=== PATIENT | female | born 1965 | race Caucasian/White ===

== ENCOUNTER 2017-03-02 19:06 | Inpatient (IN) | payer OTHER ==
[~2017-03-02] VITALS: Ht 160 cm; Wt 107.0 kg
[~2017-03-02 19:06] MED LIST: AMITIZA8 MICROGRA PO; ANALGESIC325 MG PO; ANUSOL1 SUPP PR; Aspirin E.C. PO; BACTRIM,SEPT1 TABLET PO; BENICAR20 MG PO; BUPROPION XL150 MG PO; Bactrim,Septra DS 80 PO; CYMBALTA20 MG PO; Coumadin Daily Dose PO; DEPAKOTE ER (E500 MG PO; DEPAKOTE ER250 MG PO; DEPAKOTE500 MG PO; DILAUDID 2 MG; DONNATAL1 TABLET PO; DOXYCYCLINE HYC50 MG PO; ELAVIL50 MG PO; Ecotrin PO; FLEXERIL10 MG PO; FLOVENT 11120 INHALA IH; GABAPENTIN600 MG PO; GLUCOPHAGE500 MG PO; GRALISE300 MG PO; KLONOPIN0.5 M1 PO; KLONOPIN1 MG PO; KlonoPIN PO; LASIX20 MG PO; LESCOL XL80 MG PO; LEVAQUIN 750 MG; LEVOTHROID,S0.025 MG PO; LEVOTHYROXINE50 MCG PO; LIPITOR20 MG PO; LISINOPRIL20 MG PO; LYRICA100 MG PO; Lasix PO; Levaquin PO; Levothroid,Synthroid PO; Lopressor PO; METFORMIN HCL1000 MG PO; METOPROLOL TART25 MG PO; MOBIC15 MG PO; NEURONTIN100 MG PO; NEURONTIN300 MG PO; NEURONTIN600 MG PO; Neurontin PO; OMEPRAZOLE20 MG PO; OXYCODONE HCL10 MG PO; OXYCODONE HCL5 MG PO; PEPCID20 MG PO; PEPCID40 MG PO; PERCOCET 5/31 TABLET PO; PLAVIX75 MG PO; PRAVACHOL40 MG PO; PROZAC40 MG PO; Santyl TP; THERAGRAN1 TABLET PO; ULTRAM50 MG PO; VICODIN,LORT1 TABLET PO; ZOFRAN ODT4 MG PO; ZOFRAN8 MG PO; bactrim ds
[2017-03-02 20:04] LABS: HEMATOCRIT 42.9 % (36.0-46.0); MCH 29.9 PG (29.0-34.0); MCHC 33.6 G/DL (30.0-36.0); PLATELET COUNT 219 K/uL (156-360); RBC DIS.WIDTH-CV 13.3 % (11.8-14.6); RBC DIS.WIDTH-SD 43.7 % (39-53); RED BLOOD COUNT 4.82 M/uL (3.80-5.20); WHITE BLOOD COUNT 10.4 K/uL (4.1-10.2)
[2017-03-02 20:16] LABS: CHLORIDE 103 mEq/L (99-109); POTASSIUM 4.4 mEq/L (3.7-5.4); SODIUM 136 mEq/L (136-147)
[2017-03-02 20:17] LABS: GLUCOSE 257 mg/dL (70-99)
[2017-03-02 20:19] LABS: ANION GAP 10 MEQ/L (2-14)
[2017-03-02 20:21] LABS: GFR ESTIMATE (CALCULATED) > 59 mL/min/
[2017-03-02 20:22] LABS: UREA NITROGEN (BUN) 17 mg/dL (9-23)
[2017-03-02 20:27] LABS: TROP-I INTERPRETATION POSITIVE
[2017-03-02 20:30] LABS: TROPONIN-I 1.18 ng/mL (0.0-0.30)
[2017-03-02 20:47] LABS: PROTHROMBIN TIME 10.7 SEC (10.2-12.9)
[2017-03-02 20:50] LABS: PTT 28.5 SEC (25-37)
[2017-03-02] MEDS ORDERED: PERCOCET 10/1 TABLET PO (21:34)
[2017-03-02] MEDS ORDERED: VOLTAREN 1% GE100 GM TP (21:35)
[2017-03-02] MEDS ORDERED: AMLODIPINE BESY10 MG PO (21:35)
[2017-03-02] MEDS ORDERED: PRAVACHOL40 MG PO (21:35)
[2017-03-02] MEDS ORDERED: LYRICA75 MG PO (21:35)
[2017-03-02 23:48] LABS: ADD MEDTOX COMMENT Y; AMPHETAMINE NEGATIVE (500 ng/mL); BARBITURATES NEGATIVE (200 ng/mL); BENZODIAZEPINES PRESUMPTIVE POSITIVE (150 ng/mL); COCAINE NEGATIVE (150 ng/mL); INTERNAL CONTROLS VALID? YES; METHADONE NEGATIVE (200 ng/mL); METHAMPHETAMINE NEGATIVE (500 ng/mL); OPIATES (MORPHINE) NEGATIVE (100 ng/mL); OXYCODONE PRESUMPTIVE POSITIVE (100 ng/mL); PHENCYCLIDINE NEGATIVE (25 ng/mL); PROPOXYPHENE NEGATIVE (300 ng/mL); THC CANNABINOIDS NEGATIVE (50 ng/mL); TRICYCLIC ANTIDEPRESSANTS PRESUMPTIVE POSITIVE (300 ng/mL)
[2017-03-03] VITALS (7 sets, daily range): BP systolic 100–130; BP diastolic 56–73
[2017-03-03 01:16] LABS: TROP-I INTERPRETATION POSITIVE
[2017-03-03 01:19] LABS: TROPONIN-I 3.36 ng/mL (0.0-0.30)
[2017-03-03] MEDS ORDERED: KLONOPIN0.5 M1 PO (01:45)
[2017-03-03] MEDS ORDERED: OMEPRAZOLE20 MG PO (01:45)
[2017-03-03 02:51] LABS: BENZODIAZEPINES QUANT VALUE 0 NG/ML; BENZODIAZEPINES, URINE SCREEN Negative (200 ng/mL)
[2017-03-03 06:04] LABS: BASOPHIL COUNT 0.1 K/uL (0-0.1); EOSINOPHIL COUNT 0.3 K/uL (0-0.3); HEMATOCRIT 41.8 % (36.0-46.0); IMMATURE GRANULOCYTE (%) 0.3 % (0.0-0.7); INSTRUMENT ABS NEUTROPHIL CT 3.5 K/uL; LYMPHOCYTE COUNT 4.2 K/uL (1.0-2.8); MCH 28.8 PG (29.0-34.0); MCHC 31.8 G/DL (30.0-36.0); MCV 90.5 FL (83-99); MEAN PLAT.VOLUME 11.6 uM^3 (9.5-12.4); MONOCYTE (%) 7.2 % (3-12); MONOCYTE COUNT 0.6 K/uL (0-0.8); NEUTROPHIL (%) 40.6 % (45-76); NEUTROPHIL COUNT 3.5 K/uL (1.8-6.4); PLATELET COUNT 205 K/uL (156-360); RBC DIS.WIDTH-CV 13.6 % (11.8-14.6); RBC DIS.WIDTH-SD 45.1 % (39-53); RED BLOOD COUNT 4.62 M/uL (3.80-5.20); WHITE BLOOD COUNT 8.7 K/uL (4.1-10.2)
[2017-03-03 06:27] LABS: ANION GAP 8 MEQ/L (2-14); CHLORIDE 107 MEQ/L (99-109); GFR ESTIMATE (CALCULATED) > 59 mL/min/; GLUCOSE 183 mg/dL (70-99); POTASSIUM 4.3 MEQ/L (3.7-5.4); SAMPLE HEMOLYSIS CHECK 0; SAMPLE ICTERIC CHECK 0; SAMPLE LIPEMIA CHECK 0; SODIUM 139 MEQ/L (136-147); UREA NITROGEN (BUN) 14 mg/dL (9-23)
[2017-03-03 06:34] LABS: TROP-I INTERPRETATION POSITIVE; TROPONIN-I 4.14 ng/mL (0.0-0.30)
[2017-03-03 07:42] LABS: POINT-OF-CARE METER ID UU13113698
[2017-03-03 21:26] LABS: POINT-OF-CARE METER ID UU13113698
[2017-03-04 04:20] VITALS: BP 111/60
[2017-03-04 06:15] LABS: PROTHROMBIN TIME 10.9 SEC (10.2-12.9)
[2017-03-04 06:17] LABS: PTT 59.5 SEC (25-37)
[2017-03-04 07:59] LABS: POINT-OF-CARE METER ID UU14174216
[2017-03-04 08:16] VITALS: BP 116/65
[2017-03-04 11:38] VITALS: BP 100/59
[2017-03-04 16:15] VITALS: BP 106/57
[2017-03-04 19:22] VITALS: BP 106/66
[2017-03-04 21:25] LABS: POINT-OF-CARE METER ID UU14174216
[2017-03-04 23:26] VITALS: BP 125/63
[2017-03-05 04:50] VITALS: BP 138/68
[2017-03-05 08:17] VITALS: BP 142/79
[2017-03-05] MEDS ORDERED: LISINOPRIL2.5 MG PO (08:18)
[2017-03-05] MEDS ORDERED: NICOTINE PATCH1 EAC2 TD (08:18)
[2017-03-05] MEDS ORDERED: ADVAIR HFA120 INHALA IH (08:18)
[2017-03-05] MEDS ORDERED: ASPIR-LOW81 MG PO (08:18)
[2017-03-05] MEDS ORDERED: CEPHALEXIN500 MG PO (08:18)
[2017-03-05 11:50] VITALS: BP 138/85
[2017-03-05 16:16] LABS: POINT-OF-CARE METER ID UU13113781
[2017-03-05 17:37] VITALS: BP 129/74
[2017-03-05 19:14] VITALS: BP 122/63
[2017-03-05 21:04] LABS: POINT-OF-CARE METER ID UU13113781
[2017-03-05 23:03] VITALS: BP 131/76
[2017-03-06 03:25] LABS: EOSINOPHIL (%) 2.3 % (0-5); EOSINOPHIL COUNT 0.2 K/uL (0-0.3); HEMATOCRIT 38.4 % (36.0-46.0); IMMATURE GRANULOCYTE (%) 0.4 % (0.0-0.7); INSTRUMENT ABS NEUTROPHIL CT 4.8 K/uL; LYMPHOCYTE COUNT 2.6 K/uL (1.0-2.8); MCH 29.3 PG (29.0-34.0); MCHC 32.6 G/DL (30.0-36.0); MCV 90.1 FL (83-99); MEAN PLAT.VOLUME 11.6 uM^3 (9.5-12.4); MONOCYTE (%) 6.4 % (3-12); MONOCYTE COUNT 0.5 K/uL (0-0.8); NEUTROPHIL (%) 58.8 % (45-76); NEUTROPHIL COUNT 4.8 K/uL (1.8-6.4); PLATELET COUNT 186 K/uL (156-360); RBC DIS.WIDTH-CV 13.9 % (11.8-14.6); RBC DIS.WIDTH-SD 45.3 % (39-53); RED BLOOD COUNT 4.26 M/uL (3.80-5.20); WHITE BLOOD COUNT 8.2 K/uL (4.1-10.2)
[2017-03-06 03:41] LABS: PTT 74.1 SEC (25-37)
[2017-03-06 04:00] VITALS: BP 127/75
[2017-03-06 08:09] LABS: POINT-OF-CARE METER ID UU13113781
[2017-03-06 08:30] VITALS: BP 109/65
[2017-03-06 09:35] LABS: PROTHROMBIN TIME 11.1 SEC (10.2-12.9)
[2017-03-06 09:41] LABS: PTT 41.3 SEC (25-37)
== END 2017-03-06 11:55 | disposition short-term general hospital (02) | DRG 281 ==
LOC: EME 19:06 → 4EAST 23:12 → EDOF 23:12 → ENRESERV 23:14 → 4EAST 03-03 00:56
PROVIDERS: Emergency Medicine; Hospitalist; Internal Medicine; Internal Medicine Cardiovascular Disease
DX: I21.4 Non-ST elevation (NSTEMI) myocardial infarction (principal); L03.115 Cellulitis of right lower limb; I25.10 Atherosclerotic heart disease of native coronary artery without angina pectoris; I70.0 Atherosclerosis of aorta; I70.201 Unspecified atherosclerosis of native arteries of extremities, right leg; E03.9 Hypothyroidism, unspecified; E78.5 Hyperlipidemia, unspecified; J44.9 Chronic obstructive pulmonary disease, unspecified; E11.42 Type 2 diabetes mellitus with diabetic polyneuropathy; E78.00 Pure hypercholesterolemia, unspecified; F31.9 Bipolar disorder, unspecified; F17.210 Nicotine dependence, cigarettes, uncomplicated; G43.909 Migraine, unspecified, not intractable, without status migrainosus; G47.33 Obstructive sleep apnea (adult) (pediatric); G89.4 Chronic pain syndrome; I10 Essential (primary) hypertension; K59.00 Constipation, unspecified; M79.7 Fibromyalgia; F41.9 Anxiety disorder, unspecified; E66.01 Morbid (severe) obesity due to excess calories; Z86.711 Personal history of pulmonary embolism; Z23 Encounter for immunization; Z86.718 Personal history of other venous thrombosis and embolism; Z86.73 Personal history of transient ischemic attack (TIA), and cerebral infarction without residual deficits; Z95.5 Presence of coronary angioplasty implant and graft; Z91.14 Patient's other noncompliance with medication regimen; Z79.02 Long term (current) use of antithrombotics/antiplatelets; Z79.891 Long term (current) use of opiate analgesic; Z68.41 Body mass index [BMI] 40.0-44.9, adult
CPT/HCPCS: 71020; 80048; 82948; 84484; 84999; 85025; 85027; 85347; 85610; 85730; 90686; 93005; 93306; 93971; 94640; 94640 76; 99202; 99281; 99285; C1769; C1887; C1894; J1644; J1815; J2250; J3010; J7040

== ENCOUNTER 2017-09-27 14:48 | Inpatient (IN) | payer OTHER ==
[~2017-09-27] VITALS: Ht 162.6 cm; Wt 101.9 kg
[~2017-09-27 14:48] MED LIST changes: +ADVAIR HFA120 INHALA IH; +AMLODIPINE BESY10 MG PO; +ASPIR-LOW81 MG PO; +CEPHALEXIN500 MG PO; +LISINOPRIL2.5 MG PO; +LYRICA150 MG PO; +NICOTINE PATCH1 EAC2 TD; +PERCOCET 10/1 TABLET PO; +VOLTAREN 1% GE100 GM TP
[2017-09-27 15:34] LABS: HEMATOCRIT 42.3 % (36.0-46.0); HEMOGLOBIN 13.8 G/DL (11.9-15.5); MCH 28.8 PG (29.0-34.0); MCHC 32.6 G/DL (30.0-36.0); MCV 88.3 FL (83-99); PLATELET COUNT 277 K/uL (156-360); RBC DIS.WIDTH-CV 14.6 % (11.8-14.6); RBC DIS.WIDTH-SD 46.8 % (39-53); RED BLOOD COUNT 4.79 M/uL (3.80-5.20); WHITE BLOOD COUNT 10.9 K/uL (4.1-10.2)
[2017-09-27 15:43] LABS: ALBUMIN 3.6 g/dL (3.2-4.8); CHLORIDE 102 mEq/L (99-109); POTASSIUM 5.2 mEq/L (3.7-5.4); SODIUM 138 mEq/L (136-147)
[2017-09-27 15:45] LABS: GLUCOSE 210 mg/dL (70-99)
[2017-09-27 15:46] LABS: TOTAL PROTEIN 7.3 g/dL (6.4-8.3)
[2017-09-27 15:47] LABS: TOTAL BILIRUBIN 0.5 mg/dL (0.0-1.0)
[2017-09-27 15:49] LABS: ALKALINE PHOSPHATASE 172 IU/L (3-129); CREATININE 0.9 mg/dL (0.6-1.3); GFR ESTIMATE (CALCULATED) > 59 mL/min/
[2017-09-27 15:50] LABS: UREA NITROGEN (BUN) 17 mg/dL (9-23)
[2017-09-27 15:51] LABS: AST (GOT) 103 IU/L (2-34)
[2017-09-27 15:52] LABS: ALT (GPT) 30 IU/L (3-49)
[2017-09-27 15:54] LABS: TROP-I INTERPRETATION POSITIVE
[2017-09-27 16:02] LABS: TROPONIN-I 29.49 ng/mL (0.0-0.30)
[2017-09-27] MEDS ORDERED: AMARYL1 MG PO (17:43)
[2017-09-27 20:43] LABS: TROP-I INTERPRETATION POSITIVE
[2017-09-27 20:45] LABS: TROPONIN-I > 50.00 ng/mL (0.0-0.30)
[2017-09-28] VITALS (16 sets, daily range): BP systolic 89–116; BP diastolic 65–78
[2017-09-28 02:49] LABS: AMPHETAMINE NEGATIVE (500 ng/mL); BARBITURATES NEGATIVE (200 ng/mL); BENZODIAZEPINES NEGATIVE (150 ng/mL); BUPRENORPHINE NEGATIVE (10 ng/mL); COCAINE NEGATIVE (150 ng/mL); METHADONE NEGATIVE (200 ng/mL); METHAMPHETAMINE NEGATIVE (500 ng/mL); OPIATES (MORPHINE) NEGATIVE (100 ng/mL); OXYCODONE PRESUMPTIVE POSITIVE (100 ng/mL); PHENCYCLIDINE NEGATIVE (25 ng/mL); PROPOXYPHENE NEGATIVE (300 ng/mL); THC CANNABINOIDS NEGATIVE (50 ng/mL); TRICYCLIC ANTIDEPRESSANTS NEGATIVE (300 ng/mL)
[2017-09-28 05:54] LABS: HEMATOCRIT 39.2 % (36.0-46.0); HEMOGLOBIN 12.3 G/DL (11.9-15.5); MCH 27.6 PG (29.0-34.0); MCHC 31.4 G/DL (30.0-36.0); MCV 88.1 FL (83-99); PLATELET COUNT 257 K/uL (156-360); RBC DIS.WIDTH-CV 14.7 % (11.8-14.6); RBC DIS.WIDTH-SD 47.5 % (39-53); RED BLOOD COUNT 4.45 M/uL (3.80-5.20); WHITE BLOOD COUNT 9.9 K/uL (4.1-10.2)
[2017-09-28 06:15] LABS: CHLORIDE 104 MEQ/L (99-109); CREATININE 0.8 MG/DL (0.6-1.3); GFR ESTIMATE (CALCULATED) > 59 mL/min/; GLUCOSE 210 mg/dL (70-99); POTASSIUM 4.3 MEQ/L (3.7-5.4); SODIUM 134 MEQ/L (136-147); UREA NITROGEN (BUN) 16 mg/dL (9-23)
== END 2017-09-28 17:45 | disposition short-term general hospital (02) | DRG 282 ==
LOC: EME 14:48 → EDOF 22:14 → 4WEST 22:14 → ENRESERV 22:15 → 4WEST 09-28 01:57
PROVIDERS: Emergency Medicine; Hospitalist; Internal Medicine Cardiovascular Disease
DX: I21.4 Non-ST elevation (NSTEMI) myocardial infarction (principal); E11.65 Type 2 diabetes mellitus with hyperglycemia; I70.0 Atherosclerosis of aorta; F41.9 Anxiety disorder, unspecified; I10 Essential (primary) hypertension; I25.10 Atherosclerotic heart disease of native coronary artery without angina pectoris; J44.9 Chronic obstructive pulmonary disease, unspecified; E78.5 Hyperlipidemia, unspecified; E11.42 Type 2 diabetes mellitus with diabetic polyneuropathy; G89.4 Chronic pain syndrome; F31.9 Bipolar disorder, unspecified; M79.7 Fibromyalgia; G43.909 Migraine, unspecified, not intractable, without status migrainosus; K21.9 Gastro-esophageal reflux disease without esophagitis; E03.9 Hypothyroidism, unspecified; E66.01 Morbid (severe) obesity due to excess calories; F17.210 Nicotine dependence, cigarettes, uncomplicated; Z95.5 Presence of coronary angioplasty implant and graft; Z95.1 Presence of aortocoronary bypass graft; Z86.711 Personal history of pulmonary embolism; Z86.718 Personal history of other venous thrombosis and embolism; Z91.14 Patient's other noncompliance with medication regimen; I25.2 Old myocardial infarction; Z68.38 Body mass index [BMI] 38.0-38.9, adult; Z79.82 Long term (current) use of aspirin; Z91.19 Patient's noncompliance with other medical treatment and regimen; Z86.73 Personal history of transient ischemic attack (TIA), and cerebral infarction without residual deficits; Z88.5 Allergy status to narcotic agent
CPT/HCPCS: 71046; 71275; 80048; 80053; 84484; 85027; 85379; 85610; 85730; 87641; 93005; 93306; 94640; 99281; 99285; J1644; J1940; J2060; J2405; J3010; J7030